=== PATIENT | female | born 1940 | race Caucasian/White ===

== ENCOUNTER → 2020-01-31 | Outpatient (CLI) | payer BC, MEDICARE ==
--- NOTE | 2020-01-31 15:00 | RAD ---
Bone densitometry. Clinical history: Postmenopausal female for screening. Lumbar spine: L1-L4. The technical acquisition is adequate. The bone mineral density across the aggregate of L1-L4 is 0.874 gm/cm2. This corresponds to a T-score of -2.6 which is consistent with osteoporotic bone mineral density. At this bone density level, fracture risk is increased. Hip: Right. The technical acquisition is adequate. The lowest bone mineral density between the neck and total femur occurs at the the right total femur and is 0.582 gm/cm2. This corresponds to a T-score of -3.4 which is consistent with osteoporotic bone mineral density. At this bone density level, fracture risk is increased. Impression: 1. Osteoporotic bone mineral density of the lumbar spine and right hip. Note: T-Score definitions established by the World Health Organization: 1. Normal: T-score is -1.0 or above. 2. Osteopenia: T-score is between -1.0 and -2.5. 3. Osteoporosis: T-score is -2.5 or below. For patients in whom the T-Score does not apply, a Z-Score below -2.0 is consistent with abnormal bone mineral density. Electronically signed by: Humberto Fischer MD (01/31/2020 2:57 PM) [id number]
== END ==
LOC: DXRAD 12:25
PROVIDERS: ATTEND Family Medicine
DX: Z13.820 Encounter for screening for osteoporosis (principal); Z00.00 Encounter for general adult medical examination without abnormal findings; M81.8 Other osteoporosis without current pathological fracture
CPT/HCPCS: 77080

== ENCOUNTER → 2020-03-20 | Outpatient (CLI) | payer BC, MEDICARE ==
--- NOTE | 2020-03-20 12:12 | CARD ---
MR#: [id number] Date of Study: 03/20/2020 Ordering Physician: MARCUS VILLATORO, Referring Physician: MARCUS VILLATORO, Tech: Estee Solorio [facility] APPROVED REPORT EXAM: Two-dimensional and M-mode echocardiogram with Doppler and color Doppler. Other Information Quality : Good Rhythm : Frequent PVC's INDICATION Tachycardia 2D DIMENSIONS RVDd3.1 (2.9-3.5cm)Left Atrium(2D)3.7 (1.6-4.0cm) IVSd1.0 (0.7-1.1cm)Aortic Root(2D)2.8 (2.0-3.7cm) LVDd5.1 (3.9-5.9cm)LVOT Diameter2.0 (1.8-2.4cm) PWd1.0 (0.7-1.1cm)LVDs4.2 (2.5-4.0cm) FS (%) 17.8 %SV45.9 ml LVEF(%)40.0 (>50%) Aortic Valve AoV Peak Randy.124.7cm/sAoV VTI26.7cm AO Peak GR.6.2mmHgLVOT Peak Randy.116.7cm/s LVOT VTI 24.98cmAO Mean GR.4mmHg CHELA (VMAX)2.92kr1VPB (VTI)2.87cm2 Mitral Valve MV E Tcfdssis97.7cm/sMV DECEL [id number] MV A Ejtkplco906.2cm/sE/A Ratio0.7 Tricuspid Valve TR P. Xbwpiufq116bl/sRAP EOXPXMHD5mkNg TR Peak Gr.53klEyISPU79crBi Pulmonary Vein S1 Ibmpcdop09.7cm/sD2 Aegwgjta73.7cm/s LEFT VENTRICLE The left ventricle is normal size. There is normal left ventricular wall thickness. Left ventricle sy stolic function is normal. EF 55% Septal motion consistent with conduction abnormality. Otherwise, gr ossly normal wall motion. Transmitral Doppler flow pattern is Grade I-abnormal relaxation pattern. RIGHT VENTRICLE The right ventricle is normal size. The right ventricular systolic function is normal. ATRIA The left atrium size is normal. The right atrium size is normal. The interatrial septum is intact wit h no evidence for an atrial septal defect or patent foramen ovale as noted on 2-D or Doppler imaging. AORTIC VALVE The aortic valve is calcified but opens well. Doppler and Color Flow revealed no significant aortic r egurgitation. There is no significant aortic valvular stenosis. MITRAL VALVE The mitral valve is calcified but opens well. Mitral annular calcification is mild. There is no evide nce of mitral valve prolapse. There is no mitral valve stenosis. Doppler and Color-flow revealed trac e to mild mitral regurgitation. TRICUSPID VALVE The tricuspid valve is normal in structure and function. Doppler and Color Flow revealed trace tricus pid regurgitation. There is mild pulmonary hypertension. The PA pressure was estimated at 33 mmHg. Th ere is no tricuspid valve stenosis. PULMONIC VALVE The pulmonic valve is not well visualized. Doppler and Color Flow revealed no pulmonic valvular regur gitation. There is no pulmonic valvular stenosis. GREAT VESSELS The aortic root is normal in size. The ascending aorta is normal in size. The IVC is normal in size a nd collapses >50% with inspiration. PERICARDIAL EFFUSION There is no evidence of significant pericardial effusion. Critical Notification Critical Value: No <Conclusion> Left ventricle systolic function is normal. EF 55% Septal motion consistent with conduction abnormality. Otherwise, grossly normal wall motion. Signed by : Trace Gusman, Electronically Approved : 03/20/2020 12:11:53
== END ==
LOC: ECHO 07:36
PROVIDERS: ATTEND Family Medicine
DX: I08.0 Rheumatic disorders of both mitral and aortic valves (principal); I27.20 Pulmonary hypertension, unspecified
CPT/HCPCS: 93306